=== PATIENT | female | born 1975 | race Caucasian/White ===

== ENCOUNTER 2024-04-19 17:27 | Emergency (ER) | payer SELFPAY ==
[2024-04-19] VITALS (8 sets, daily range): BP systolic 127–134; BP diastolic 61–71; PULSE 69–93; RESP 18; TEMP 36.8; O2SAT 96–97; BMI 22.3
--- NOTE | 2024-04-19 17:45 | EKG_ITS ---
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
--- NOTE | 2024-04-19 18:03 | DI.US.S_ITS ---
PROCEDURE: US ABDOMEN LIMITED INDICATIONS: RUQ PAIN; N/V TECHNIQUE: Real-time scanning was performed of the abdominal and retroperitoneal organs, with image documentation. COMPARISON: [facility], CT, CT ABDOMEN PELVIS WITH CONTRAST, 04/19/2024, 12:22. FINDINGS: Liver: Liver is normal in size and homogeneous in echotexture. Gallbladder: No gallstones. Wall is thickened measuring 4.8 mm. Mild pericholecystic fluid. Biliary ducts: Intrahepatic bile ducts are non-dilated. Extrahepatic bile duct caliber measures 7.2 mm. Normal is 6-7 mm or less in diameter, or 10 mm or less post-cholecystectomy. Pancreas: Visualized portions of the pancreas are sonographically normal. Miscellaneous: No free abdominal fluid. IMPRESSION: Gallbladder wall thickening with mild pericholecystic fluid. No stones are identified. Acalculous cholecystitis cannot be excluded. Dictated by: Yocasta Cornell M.D. on 04/19/2024 at 19:08 Approved by: Yocasta Cornell M.D. on 04/19/2024 at 19:09
--- NOTE | 2024-04-19 18:09 | PC.NURSE ---
Pt reports having taken a total of 8mg zofran today. Currently denies nausea.
[2024-04-19 18:11] LABS: Add Manual Diff / Slide Review NO; Basophils Absolute Auto 0 /uL (0-100); Basophils Percent Auto 0.4 % (0-2); Eosinophils Absolute Auto 100 /uL (0-450); Eosinophils Percent Auto 1.7 % (2-4); Hematocrit 39.8 % (36-46); Hemoglobin 13.6 g/dL (12.0-16.0); Lymphocytes Absolute Auto 1100 /uL (1100-4500); Lymphocytes Percent Auto 23.3 % (25-40); Mean Corpuscular HGB Conc 34.2 % (30-36); Mean Corpuscular Hemoglobin 29.6 PG (26-34); Mean Corpuscular Volume 86.3 fL (80-100); Monocytes Absolute Auto 700 /uL (0-900); Monocytes Percent Auto 15.1 % (3-14); Neutrophils Absolute Auto 2900 /uL (1500-7000); Neutrophils Percent Auto 59.5 % (50-75); Platelet Count 271 X10^3/uL (150-400); Red Blood Cell Count 4.61 X10^6/uL (4.0-5.2); Red Cell Distribution Width 13.3 % (11.6-14.8); White Blood Cell Count 4.9 X10^3/uL (4.5-11.0)
[2024-04-19 18:22] LABS: Alanine Aminotransferase 378 IU/L (<35); Albumin 3.6 g/dL (3.5-5.0); Albumin Globulin Ratio 1.2 (1.0-2.8); Alkaline Phosphatase 229 U/L (38-126); Aspartate Aminotransferase 342 IU/L (14-36); Bilirubin Total 0.6 mg/dL (0.2-1.3); Blood Urea Nitrogen 8 mg/dL (7-17); Calcium 8.6 mg/dL (8.4-10.2); Carbon Dioxide 29 mmol/L (22-32); Chloride 103 mmol/L (98-107); Estimated Glomerular Filt Rate > 60 mL/min (>60); Globulin 2.9 g/dL (1.7-4.1); Glucose 99 mg/dL (70-100); HEMOLYSIS < 15 (0-50); Lipase 405 U/L (23-300); Potassium 3.2 mmol/L (3.4-5.1); Sodium 137 mmol/L (137-145); Total Protein 6.5 g/dL (6.3-8.2)
[2024-04-19 20:24] LABS: Bacteria Urine Few (2-10); Mucus Urine 3+ (Negative); RBC Urine 0-1/HPF (0-5/HPF); Squamous Epithelial Cell Urine 10-30 /HPF (0-5/HPF); Urine Volume 10mL (spun); WBC Urine 1-5/HPF (0-5/HPF)
[2024-04-19 20:25] LABS: Culture Indicated Urine Cult Not Indicated
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
[2024-04-19] MEDS: ONDANSETRON 4 MG/2 ML INJ IV (21:17)
[2024-04-19] MEDS: levoFLOXacin 250 MG TABLET 750 MG PO (21:17)
[2024-04-19] MEDS: KETOROLAC 30 MG/ML VIAL 15 MG IV (21:18)
== END 2024-04-19 21:39 | disposition home or self-care (01) ==
PROVIDERS: Student in an Organized Health Care Education/Training Program; Emergency Provider Emergency Medicine; Family Provider Nurse Practitioner; PCP Nurse Practitioner
DX: K81.9 Cholecystitis, unspecified (principal); R11.2 Nausea with vomiting, unspecified; E87.6 Hypokalemia
CPT/HCPCS: 76705; 80053; 81003; 81015; 81025; 83690; 85025; 93005; 96374; 96375; 99284; J1885; J2405

== ENCOUNTER 2024-04-22 13:45 | Day surgery (SDC) | payer SELFPAY ==
[2024-04-22] VITALS (7 sets, daily range): BP systolic 135–186; BP diastolic 85–92; PULSE 55–87; RESP 12–18; TEMP 36.4–36.7; O2SAT 95–100; BMI 27.4
--- NOTE | 2024-04-22 | PATH_ITS ---
[facility] Accession Number: [id number] No. of containers..01 Tissue . 01 Material submitted: . gallbladder - GALLBLADDER . 01 Diagnosis: GALLBLADDER, CHOLECYSTECTOMY: Mild chronic cholecystitis with surface erosions and reactive changes. Negative for dysplasia and malignancy. [facility] 04/26/2024 1130 Local . 01 Electronically signed: . Samreen Medina MD, Pathologist NPI- [id number] . 01 Gross description: . Received in formalin with two patient identifiers and gallbladder, is an intact gallbladder, 10.1 x 3.7 x 3.6 cm, with a alexandra to violaceous, unremarkable external surface. The cystic duct margin is inked blue and no pericystic lymph node is identified. The lumen contains dark green, viscous bile with no calculi identified in the lumen or the container. The mucosa is green and velvety with no yellow discoloration, polyps, or lesions identified. The merritt average 0.3 cm thick. Statistical Machine [employer]ic sections to include the cystic duct margin and full thickness sections are submitted in A1. ([id number]) /MRV 04/23/2024 1916 Local . 01 Pathologist provided ICD-10: K80.10 . 01 CPT . 571239 Specimen Comment: A courtesy copy of this report has been sent to [phone] Performed at: [address] [id number] MD Tonny Garcia MD Phone: [phone]
[2024-04-22] MEDS: LACTATED RINGERS 1,000 ML 84 ML IV (14:26)
--- NOTE | 2024-04-22 16:00 | PM.HP.1 ---
History of Present Illness History of Present Illness Date Patient Seen: 04/22/24 Time Patient Seen: 16:00 Chief complaint: SDC Narrative: Intermittent and acute cholecystitis. Was seen in ED earlier this week with RUQ, sharp pain. Nausea and vomitting. It resolved and she chose to undergo the surgery under elective conditions. [facility] Medical History Chronic pain syndrome Social History household members: family Smoking Status: Former smoker alcohol intake: former Meds Home Medications and Allergies Home Medications Medication Instructions Recorded Confirmed Type hydrocodone 5 mg-acetaminophen 325 1 tab PO Q6H PRN pain #10 tabs 04/19/24 04/22/24 Rx mg tablet levofloxacin 750 mg tablet 750 mg PO DAILY 7 days #7 tabs 04/19/24 Rx ondansetron 4 mg disintegrating 4 mg PO Q8H PRN nausea and 04/19/24 Rx tablet vomiting #10 tabs buprenorphine 8 mg-naloxone 2 mg 10 mg sublingual DAILY 04/20/24 04/22/24 History sublingual film Allergies Allergy/AdvReac Type Severity Reaction Status Date / Time No Known Drug Allergies Allergy Verified 04/22/24 14:01 Review of Systems Review of Systems ROS: Yes All systems reviewed with the patient and are negative except as otherwise documented Exam Vital Signs (past 8 hours): - 04/22/24 14:07 Temperature 97.8 F Pulse Rate 87 Respiratory Rate 16 Blood Pressure 135/88 Pulse Oximetry 100 Oxygen Delivery Method Room Air Oxygen Delivery Method Room Air Const General: cooperative, healthy appearing and comfortable Nutritional Appearance: average body habitus HENMT Head: normocephalic and atraumatic Ears: hearing grossly normal bilaterally Eyes Sclera: sclerae normal Neck Neck: trachea midline and No JVD Chest Chest: normal inspection of the chest Resp Effort & Inspection: normal respiratory effort and able to speak in complete sentences Cardio Rate: regular rate Rhythm: regular rhythm GI Palpation: soft and No tender Skin General: turgor normal and No atrophy Neuro General: patient alert, patient awake and patient oriented x3 Cognition: normal cognition Psych Appearance: grossly normal Mental Status: mental status grossly normal Judgment: judgment good Assessment & Plan Assessment & Plan narrative: Acute and chronic cholecystitis Plan: amy smith Time-Based Coding :: [TOTAL MINUTES] spent with patient and on the chart (including review of chart, obtaining history, exam, reviewing outside data, placing orders, documenting exam and treatment plan, and counseling patient) on [DATE].
--- NOTE | 2024-04-22 16:00 | SUR.OPER ---
Supine on padded OR bed, head on pillow, arms secured on padded arm boards at <90 degrees abduction, legs uncrossed, safety belt at thigh, tape over blanket over lower legs.
[2024-04-22] MEDS: CEFAZOLIN 2 GM/100 ML PREMIX 100 ML IV (16:25)
[2024-04-22] MEDS: BUPIVACAINE 0.5% W/ EPI (PF) 30 ML VIAL INJ (16:39)
--- NOTE | 2024-04-22 17:06 | PM.OP.1 ---
Operative Date/Time/Diagnoses Date of procedure: 04/22/24 Time of procedure: 17:07 Pre-op diagnosis: Acute cholecystitis Post-op diagnosis: same Procedure & Clinicians Procedure: Laparoscopic cholecystectomy Same procedure as scheduled: Yes Indications: Acute cholecystitis Surgeon: Anayeli Nicole Entry Table Operator: Boby Pinedo Anesthesia Type: General and Local Operative Notes Findings: Acute cholecystitis Closure Type: primary Specimen(s): other (Gallbladder) Estimated Blood Loss (mL): 30 Blood products transfused: none Procedure in detail: Preop diagnosis: Acute cholecystitis Postop diagnosis: Same Operative procedure: Laparoscopic cholecystectomy Anesthetic: General with ET tube intubation along with local speech pathologist assistant: CATRACHITA Shaw Surgeon: Yelena Nicole MD Findings: Acute cholecystitis Procedure: Patient placed in a supine position. Prepped and draped in sterile fashion to expose her abdomen. Infraumbilical port site was placed using open technique a 12 mm port. Insufflation began all other ports were placed under direct vision. Other ports included a 5 mm in the midepigastrium and 2 5 mm ports in the right lateral abdomen. Gallbladder was grasped pushed cephalad for exposure. Cystic duct was identified, clipped once distally twice proximally and transected. Cystic artery was isolated, clipped once distally once proximally and transected. Gallbladder was removed from the fossa bed with electrocautery. No spillage of bile or stones. We did however have bleeding with relation to a capsular tear of the liver. Surgicel was placed for improved hemostasis. I then placed the gallbladder into an Endo-Catch bag and pulled it through the infraumbilical port site intact. Surveyed the abdomen again and removed all ports to begin closure. Closure consisted of interrupted 0 Vicryl for fascial closure. Skin was closed with running 4-0 Monocryl. Steri-Strips and sterile dressings were placed. Patient was awakened, extubated, taken to recovery room in stable condition. Needle, instrument, sponge counts were correct. Blood loss: 30 mL Specimen: Gallbladder Complications: none Post-operative Condition: stable Disposition: PACU
[2024-04-22] MEDS: HYDROMORPHONE 1 MG INJ IV (17:39)
[2024-04-22] MEDS: METOCLOPRAMIDE 10 MG/2 ML INJ IV (17:40)
[2024-04-22] MEDS: OXYCODONE IR 5 MG TABLET PO (17:40)
[2024-04-22] MEDS: ONDANSETRON 4 MG/2 ML INJ IV (17:40)
[2024-04-22] MEDS: hydrOXYzine 50 MG/ML INJ IM (17:40)
[2024-04-22] MEDS: LACTATED RINGERS 1,000 ML 42 ML IV (17:43)
[2024-04-22] MEDS: HYDRALAZINE 20 MG/ML VIAL 5 MG IV (17:56)
== END 2024-04-22 18:25 | disposition home or self-care (01) ==
PROVIDERS: Family Provider Nurse Practitioner; PCP Nurse Practitioner; Referring Provider Surgery; Visit Provider Surgery
PROC: 0FT44ZZ Resection of Gallbladder, Percutaneous Endoscopic Approach (ICD-10-PCS; CPT 47562; principal; 2024-04-22 15:00)
DX: K81.2 Acute cholecystitis with chronic cholecystitis (principal)
CPT/HCPCS: 47562; J0360; J0690; J1171; J2405; J2765; J3010; J3410